=== PATIENT | female | born 1945 | race Caucasian/White ===

== ENCOUNTER 2016-04-11 23:49 | Emergency (ER) | payer MEDICARE ==
--- NOTE | 2016-04-12 00:11 | ED ---
Fall HPI - General Chief Complaint: Fall Stated Complaint: Fall-Head Lac Time Seen by Provider: 04/12/16 00:02 Source: patient, family Mode of arrival: ambulatory - History of Present Illness Initial Comments: Patient is 70-year-old female with chief complaint of a fall and a head laceration approximately 2 hours ago. Patient reports that she is under the influence of alcohol and fell back and hit her head. She does not know what she hit her head on. Patient reports that she's been under stress lately as her daughter is in halfway. patient reports that this causes her to drink. she reports she's only had 3 beers. patient is currently slurring her words. patient does have significant blood going down the left side of her scalp. patient reports no dizziness or loss of consciousness. - Related Data Home Medications Medication Instructions Recorded Confirmed ALPRAZolam [Xanax] 0.25 mg PO Q8HR 04/11/16 04/12/16 risperiDONE [RisperDAL] 15 mg PO DAILY PRN 04/11/16 04/12/16 Allergies Allergy/AdvReac Type Severity Reaction Status Date / Time No Known Allergies Allergy Verified 04/11/16 23:58 Review of Systems ROS Statement: Those systems with pertinent positive or pertinent negative responses have been documented in the HPI. ROS Other: All systems not noted in ROS Statement are negative. Past Medical History Past Medical History: Sleep Apnea/CPAP/BIPAP Additional Past Medical History / Comment(s): sleep disorder, anxiety History of Any Multi-Drug Resistant Organisms: None Reported Past Surgical History: No Surgical Hx Reported Past Psychological History: Anxiety Smoking Status: Never smoker Past Alcohol Use History: None Reported Past Drug Use History: None Reported General Exam Limitations: no limitations General appearance: alert, in no apparent distress Head exam: Present: normocephalic, normal inspection. Absent: atraumatic ( Patient has a significant amount of bloodfrom a 5 cm gash over the left side of the scalp.) Eye exam: Present: normal appearance, PERRL, EOMI. Absent: scleral icterus, conjunctival injection, periorbital swelling ENT exam: Present: normal exam, normal oropharynx, mucous membranes moist, TM's normal bilaterally, normal external ear exam Neck exam: Present: normal inspection, full ROM. Absent: tenderness, meningismus, lymphadenopathy Respiratory exam: Present: normal lung sounds bilaterally. Absent: respiratory distress, wheezes, rales, rhonchi, stridor, chest wall tenderness, accessory muscle use, decreased breath sounds, prolonged expiratory Cardiovascular Exam: Present: regular rate, normal rhythm, normal heart sounds. Absent: bradycardia, tachycardia, irregular rhythm, systolic murmur, diastolic murmur, rubs, gallop, clicks GI/Abdominal exam: Present: soft, normal bowel sounds. Absent: distended, tenderness, guarding, rebound, rigid Extremities exam: Present: normal inspection, full ROM, normal capillary refill. Absent: tenderness, pedal edema, joint swelling, calf tenderness Back exam: Present: normal inspection Neurological exam: Present: alert, oriented X3, CN II-XII intact, normal gait Psychiatric exam: Present: normal affect, normal mood Skin exam: Present: warm, dry, intact, normal color. Absent: rash Course Vital Signs 04/11/16 04/12/16 04/12/16 23:53 00:51 02:23 Temperature 97.4 F L 97.8 F Pulse Rate 87 90 79 Respiratory 20 20 18 Rate Blood Pressure 202/102 167/90 159/80 O2 Sat by Pulse 95 98 98 Oximetry Procedures - Laceration Laceration #1 Site: scalp (5 cm laceration) Size (cm): 5 Description: linear Depth: simple, single layer Anesthetic Used: benzocaine 0.25% Anesthesia Technique: local infiltration Amount (mls): 3 Pre-repair: wound explored, irrigated extensively Type of Sutures: other (daryn ) Number of Sutures: 7 Technique: simple, interrupted Patient Tolerated Procedure: well, no complications Medical Decision Making - Medical Decision Making Patient is a 70-year-old intoxicated female with chief complaint of a fall and head injury with a laceration over the posterior scalp. Patient has a significant amount of blood in her hair. Patient's laceration measures approximately [address] brain and C-spine were negative for any acute process. Patient able to ambulate and is not dizzy at this time. Patient reports that when she fell she was drunk and tripped and hit the edge of her head in the bathroom. She states she's been on there is significant amount of stress and is was causing her to drink. Patient was given 7 daryn after her hair was washed and free of blood clots. Patient was instructed on return parameters and to monitor for any signs of infection. She reports that she does not want to receive a tetanus vaccination. She states that she will be monitored by family member for the next 24 hours. Patient was advised to follow-up with primary care provider. She will return in approximately 7-10 days to have daryn removed. - Radiology Data Radiology results: report reviewed CT brain and C-spine were negative for any acute process. There is evidence of a laceration and hematoma over the left posterior scalp.No evidence of skull fracture. No acute intracranial hemorrhage, mass effect or midline shifts seen. No definite acute fracture in the cervical spine. Degenerative changes in the lower cervical spine. Disposition Clinical Impression: Scalp laceration, Head injury Disposition: HOME SELF-CARE Condition: Good Instructions: Fall Prevention for Older Adults (ED), Staple Care (ED), Head Injury (ED) Additional Instructions: Please return to the emergency room in 8-10 days to have staple removed. Please leave wound covered for the first 24-48 hours and then leave open to air after that time. Please use clean soap and water to clean the suture area to prevent scabbing over the top of your sutures. Please watch for any signs of infection which may include but not limited to increased pain, swelling, redness, fever or chills. Please return to the emergency room if any signs of infection do occur. Please return to the emergency room for any other concerns or complications. Referrals: Ness Ramos MD [Primary Care Provider] - 1-2 days Time of Disposition: 02:03
--- NOTE | 2016-04-12 01:10 | CT ---
EXAMINATION TYPE: CT brain damienine wo con DATE OF EXAM: 04/12/2016 12:43 AM COMPARISON: CT brain 11/24/2011 HISTORY: ETOH, fall, head lacerations, no LOC CT DLP: 1523.00 mGycm Automated exposure control for dose reduction was used. TECHNIQUE: CT scan of the head and cervical spine are performed without contrast. FINDINGS: CT brain: There is evidence of scalp laceration in the left posterior parietal area. No significant cephalohema cosme or depressed skull fracture is noted. There is no acute intracranial hemorrhage, mass effect, or midline shift identified. The ventricles and sulci are within normal limits in size. The globes are intact and the visualized sinuses are deysi ar. Vascular calcifications are noted in the base of the brain. Cervical spine: Cervical spine is visualized in its entirety from C1 through upper thoracic levels and demonstrates s atisfactory alignment without evidence of acute fracture or dislocation. Prevertebral soft tissue ap pears within normal limits. The C1-C2 articulation is unremarkable. There is reversal of normal cervical lordosis. Degenerative disc disease changes are suggested at the levels of C5-C6 and C6-C7 with disc osteophyte complexes without significant canal or foramina narro wing. IMPRESSION: 1. Scalp laceration is suggested in the left posterior parietal area without depressed skull fracture . 2. No acute intracranial hemorrhage, mass effect, or midline shift is seen. No significant change in the brain since previous study 11/24/2011. 3. No definite acute fracture in the cervical spine. 4. Degenerative changes in the lower cervical spine.
[2016-04-12 02:25] VITALS: BP 159/80; PULSE 79; RESP 18; TEMP 97.8
== END 2016-04-12 02:25 | disposition home or self-care (01) ==
LOC: EC 23:49
DX: S01.01XA Laceration without foreign body of scalp, initial encounter (principal); S09.90XA Unspecified injury of head, initial encounter; F10.129 Alcohol abuse with intoxication, unspecified; W01.10XA Fall on same level from slipping, tripping and stumbling with subsequent striking against unspecified object, initial encounter; F41.9 Anxiety disorder, unspecified; G47.30 Sleep apnea, unspecified; Z79.899 Other long term (current) drug therapy; Z99.89 Dependence on other enabling machines and devices
CPT/HCPCS: 12002; 70450; 72125; 99284

== ENCOUNTER 2019-11-16 16:24 | Emergency (ER) | payer MEDICARE, OTHER ==
[2019-11-16 16:30] VITALS: TEMP 98.1
[2019-11-16] MEDS ORDERED: SODIUM CHLORIDE 0.9% 1,000 ML IV STA (16:44)
--- NOTE | 2019-11-16 16:51 | ED ---
Arrhythmia/Palpitations HPI - General Chief Complaint: Recheck/Abnormal Lab/Rx Stated Complaint: sent by PCP Time Seen by Provider: 11/16/19 16:34 Source: patient, RN notes reviewed, old records reviewed Mode of arrival: ambulatory Limitations: no limitations - History of Present Illness Initial Comments: This is a 71-year-old female DF for evaluation of her complaining of elevated blood pressure. Patient was sent by primary care for evaluation in regards to probable possibly abnormal EKG, multiple nonspecific findings. Patient suffers no complaints here in the ER patient having significant difficulty managing her blood pressure MD Complaint: rapid heart beat, palpitations -: days(s) Context: occurred during rest, occurred during exertion Associated Symptoms: chest pain - Related Data Home Medications Medication Instructions Recorded Confirmed Aspirin EC [Ecotrin Low Dose] 81 mg PO DAILY 11/16/19 11/16/19 Losartan Potassium [Cozaar] 25 mg PO DAILY 11/16/19 11/16/19 Melatonin 10 mg PO HS PRN 11/16/19 11/16/19 Multivitamins, Thera [Multivitamin 1 tab PO DAILY 11/16/19 11/16/19 (formulary)] Previous Rx's Medication Instructions Recorded Metoprolol Tartrate [Lopressor] 50 mg PO BID #60 tab 11/16/19 Allergies Allergy/AdvReac Type Severity Reaction Status Date / Time tobramycin AdvReac Swelling Verified 11/16/19 17:41 Review of Systems ROS Statement: Those systems with pertinent positive or pertinent negative responses have been documented in the HPI. ROS Other: All systems not noted in ROS Statement are negative. Past Medical History Past Medical History: Hypertension Additional Past Medical History / Comment(s): anxiety History of Any Multi-Drug Resistant Organisms: None Reported Past Surgical History: No Surgical Hx Reported Past Psychological History: Anxiety Smoking Status: Never smoker Past Alcohol Use History: None Reported Past Drug Use History: None Reported General Exam Limitations: no limitations General appearance: alert, in no apparent distress, anxious Head exam: Present: atraumatic, normocephalic, normal inspection Eye exam: Present: normal appearance, PERRL, EOMI. Absent: scleral icterus, conjunctival injection, periorbital swelling ENT exam: Present: normal exam, mucous membranes moist Neck exam: Present: normal inspection. Absent: tenderness, meningismus, lymphadenopathy Respiratory exam: Present: normal lung sounds bilaterally. Absent: respiratory distress, wheezes, rales, rhonchi, stridor Cardiovascular Exam: Present: normal rhythm, tachycardia, normal heart sounds. Absent: systolic murmur, diastolic murmur, rubs, gallop, clicks GI/Abdominal exam: Present: soft, normal bowel sounds. Absent: distended, tenderness, guarding, rebound, rigid Extremities exam: Present: normal inspection, full ROM, normal capillary refill. Absent: tenderness, pedal edema, joint swelling, calf tenderness Back exam: Present: normal inspection Neurological exam: Present: alert, oriented X3, CN II-XII intact Psychiatric exam: Present: normal affect, normal mood Skin exam: Present: warm, dry, intact, normal color. Absent: rash Course Vital Signs 11/16/19 11/16/19 11/16/19 16:25 17:19 17:51 Temperature 98.1 F Pulse Rate 109 H Respiratory 18 Rate Blood Pressure 185/102 186/91 174/66 O2 Sat by Pulse 100 Oximetry 11/16/19 11/16/19 18:49 18:50 Temperature 98.1 F Pulse Rate 88 88 Respiratory 16 16 Rate Blood Pressure 161/85 161/85 O2 Sat by Pulse 100 Oximetry - Reevaluation(s) Reevaluation #1: Medical record is reviewed Patient reevaluated, symptoms are significantly improved Patient informed of results and questions are answered EKG Findings - EKG Comments: EKG Findings:: EKG shows sinus tachycardia rate of 108. AL 184 QRS 80 QTC 457 Medical Decision Making - Medical Decision Making 74 female DF for evaluation, patient does not feel well. Patient has had unm anageable blood pressure at home blood pressures currently improved here in the ER, patient's a symptomatic otherwise would prefer discharged home - Lab Data Result diagrams: 11/16/19 16:54 11/16/19 16:54 Lab Results 11/16/19 11/16/19 11/16/19 Range/Units 16:54 16:54 16:54 WBC 9.0 (3.8-10.6) k/uL RBC 4.78 (3.80-5.40) m/uL Hgb 14.5 (11.4-16.0) gm/dL Hct 44.2 (34.0-46.0) % MCV 92.4 (80.0-100.0) fL MCH 30.3 (25.0-35.0) pg MCHC 32.8 (31.0-37.0) g/dL RDW 11.9 (11.5-15.5) % Plt Count 310 (150-450) k/uL Neutrophils % 72 % Lymphocytes % 19 % Monocytes % 5 % Eosinophils % 2 % Basophils % 1 % Neutrophils # 6.4 (1.3-7.7) k/uL Lymphocytes # 1.7 (1.0-4.8) k/uL Monocytes # 0.5 (0-1.0) k/uL Eosinophils # 0.1 (0-0.7) k/uL Basophils # 0.1 (0-0.2) k/uL PT 10.4 (9.0-12.0) sec INR 1.0 (<1.2) APTT 25.6 (22.0-30.0) sec Sodium 139 (137-145) mmol/L Potassium 3.6 (3.5-5.1) mmol/L Chloride 103 (98-107) mmol/L Carbon Dioxide 25 (22-30) mmol/L Anion Gap 11 mmol/L BUN 14 (7-17) mg/dL Creatinine 0.89 (0.52-1.04) mg/dL Est GFR (CKD-EPI)AfAm 74 (>60 ml/min/1.73 sqM) Est GFR (CKD-EPI)NonAf 65 (>60 ml/min/1.73 sqM) Glucose 139 H (74-99) mg/dL Plasma Lactic Acid [place] (0.7-2.0) mmol/L Calcium 9.5 (8.4-10.2) mg/dL Phosphorus 3.1 (2.5-4.5) mg/dL Magnesium 2.4 H (1.6-2.3) mg/dL Total Bilirubin 0.4 (0.2-1.3) mg/dL AST 39 H (14-36) U/L ALT 28 (4-34) U/L Alkaline Phosphatase 107 (38-126) U/L Creatine Kinase 42 (30-135) U/L Troponin I (0.000-0.034) ng/mL NT-Pro-B Natriuret Pep pg/mL Total Protein 8.3 H (6.3-8.2) g/dL Albumin 4.8 (3.5-5.0) g/dL TSH 1.950 (0.465-4.680) mIU/L Urine Color Urine Appearance (Clear) Urine pH (5.0-8.0) Ur Specific [place] (1.001-1.035) Urine Protein (Negative) Urine Glucose (UA) (Negative) Urine Ketones (Negative) Urine Blood (Negative) Urine Nitrite (Negative) Urine Bilirubin (Negative) Urine Urobilinogen (<2.0) mg/dL Ur Leukocyte Esterase (Negative) Urine RBC (0-5) /hpf Urine WBC (0-5) /hpf Ur Squamous Epith Cells (0-4) /hpf Urine Mucus (None) /hpf 11/16/19 11/16/19 11/16/19 Range/Units 16:54 16:54 16:54 WBC (3.8-10.6) k/uL RBC (3.80-5.40) m/uL Hgb (11.4-16.0) gm/dL Hct (34.0-46.0) % MCV (80.0-100.0) fL MCH (25.0-35.0) pg MCHC (31.0-37.0) g/dL RDW (11.5-15.5) % Plt Count (150-450) k/uL Neutrophils % % Lymphocytes % % Monocytes % % Eosinophils % % Basophils % % Neutrophils # (1.3-7.7) k/uL Lymphocytes # (1.0-4.8) k/uL Monocytes # (0-1.0) k/uL Eosinophils # (0-0.7) k/uL Basophils # (0-0.2) k/uL PT (9.0-12.0) sec INR (<1.2) APTT (22.0-30.0) sec Sodium (137-145) mmol/L Potassium (3.5-5.1) mmol/L Chloride (98-107) mmol/L Carbon Dioxide (22-30) mmol/L Anion Gap mmol/L BUN (7-17) mg/dL Creatinine (0.52-1.04) mg/dL Est GFR (CKD-EPI)AfAm (>60 ml/min/1.73 sqM) Est GFR (CKD-EPI)NonAf (>60 ml/min/1.73 sqM) Glucose (74-99) mg/dL Plasma Lactic Acid [place] 1.2 (0.7-2.0) mmol/L Calcium (8.4-10.2) mg/dL Phosphorus (2.5-4.5) mg/dL Magnesium (1.6-2.3) mg/dL Total Bilirubin (0.2-1.3) mg/dL AST (14-36) U/L ALT (4-34) U/L Alkaline Phosphatase (38-126) U/L Creatine Kinase (30-135) U/L Troponin I <0.012 (0.000-0.034) ng/mL NT-Pro-B Natriuret Pep 331 pg/mL Total Protein (6.3-8.2) g/dL Albumin (3.5-5.0) g/dL TSH (0.465-4.680) mIU/L Urine Color Urine Appearance (Clear) Urine pH (5.0-8.0) Ur Specific [place] (1.001-1.035) Urine Protein (Negative) Urine Glucose (UA) (Negative) Urine Ketones (Negative) Urine Blood (Negative) Urine Nitrite (Negative) Urine Bilirubin (Negative) Urine Urobilinogen (<2.0) mg/dL Ur Leukocyte Esterase (Negative) Urine RBC (0-5) /hpf Urine WBC (0-5) /hpf Ur Squamous Epith Cells (0-4) /hpf Urine Mucus (None) /hpf 11/16/19 Range/Units 17:21 WBC (3.8-10.6) k/uL RBC (3.80-5.40) m/uL Hgb (11.4-16.0) gm/dL Hct (34.0-46.0) % MCV (80.0-100.0) fL MCH (25.0-35.0) pg MCHC (31.0-37.0) g/dL RDW (11.5-15.5) % Plt Count (150-450) k/uL Neutrophils % % Lymphocytes % % Monocytes % % Eosinophils % % Basophils % % Neutrophils # (1.3-7.7) k/uL Lymphocytes # (1.0-4.8) k/uL Monocytes # (0-1.0) k/uL Eosinophils # (0-0.7) k/uL Basophils # (0-0.2) k/uL PT (9.0-12.0) sec INR (<1.2) APTT (22.0-30.0) sec Sodium (137-145) mmol/L Potassium (3.5-5.1) mmol/L Chloride (98-107) mmol/L Carbon Dioxide (22-30) mmol/L Anion Gap mmol/L BUN (7-17) mg/dL Creatinine (0.52-1.04) mg/dL Est GFR (CKD-EPI)AfAm (>60 ml/min/1.73 sqM) Est GFR (CKD-EPI)NonAf (>60 ml/min/1.73 sqM) Glucose (74-99) mg/dL Plasma Lactic Acid [place] (0.7-2.0) mmol/L Calcium (8.4-10.2) mg/dL Phosphorus (2.5-4.5) mg/dL Magnesium (1.6-2.3) mg/dL Total Bilirubin (0.2-1.3) mg/dL AST (14-36) U/L ALT (4-34) U/L Alkaline Phosphatase (38-126) U/L Creatine Kinase (30-135) U/L Troponin I (0.000-0.034) ng/mL NT-Pro-B Natriuret Pep pg/mL Total Protein (6.3-8.2) g/dL Albumin (3.5-5.0) g/dL TSH (0.465-4.680) mIU/L Urine Color Colorless Urine Appearance Clear (Clear) Urine pH 7.0 (5.0-8.0) Ur Specific [place] 1.005 (1.001-1.035) Urine Protein Negative (Negative) Urine Glucose (UA) Negative (Negative) Urine Ketones Negative (Negative) Urine Blood Trace H (Negative) Urine Nitrite Negative (Negative) Urine Bilirubin Negative (Negative) Urine Urobilinogen <2.0 (<2.0) mg/dL Ur Leukocyte Esterase Negative (Negative) Urine RBC 1 (0-5) /hpf Urine WBC 2 (0-5) /hpf Ur Squamous Epith Cells <1 (0-4) /hpf Urine Mucus Rare H (None) /hpf - Radiology Data Radiology results: report reviewed (Chest x-rays negative for acute disease), image reviewed Disposition Clinical Impression: Hypertension Disposition: HOME SELF-CARE Condition: Good Instructions (If sedation given, give patient instructions): Hypertension (ED) Prescriptions: Metoprolol Tartrate [Lopressor] 50 mg PO BID #60 tab Is patient prescribed a controlled substance at d/c from ED?: No Referrals: Babar Huff MD [Primary Care Provider] - 1-2 days
[2019-11-16 17:12] LABS: Basophils # (A) 0.1 k/uL (0-0.2); Basophils % (A) 1 %; Eosinophils # (A) 0.1 k/uL (0-0.7); Eosinophils % (A) 2 %; HCT 44.2 % (34.0-46.0); HGB 14.5 gm/dL (11.4-16.0); Lymphocytes # (A) 1.7 k/uL (1.0-4.8); Lymphocytes % (A) 19 %; MCH 30.3 pg (25.0-35.0); MCHC 32.8 g/dL (31.0-37.0); MCV 92.4 fL (80.0-100.0); Mean Platelet Volume 7.7; Monocytes # (A) 0.5 k/uL (0-1.0); Monocytes % (A) 5 %; Neutrophils # (A) 6.4 k/uL (1.3-7.7); Neutrophils % (A) 72 %; Platelet Count 310 k/uL (150-450); RBC 4.78 m/uL (3.80-5.40); RDW 11.9 % (11.5-15.5)
[2019-11-16 17:22] LABS: Albumin 4.8 g/dL (3.5-5.0); Calcium 9.5 mg/dL (8.4-10.2); Magnesium 2.4 mg/dL (1.6-2.3); Partial Thromboplastin Time 25.6 sec (22.0-30.0); Phosphorus 3.1 mg/dL (2.5-4.5); Potassium 3.6 mmol/L (3.5-5.1); Prothrombin Time 10.4 sec (9.0-12.0); Total Bilirubin 0.4 mg/dL (0.2-1.3); Total Protein 8.3 g/dL (6.3-8.2)
--- NOTE | 2019-11-16 17:30 | XR ---
EXAMINATION TYPE: XR chest 2V DATE OF EXAM: 11/16/2019 COMPARISON: NONE HISTORY: Weakness TECHNIQUE: FINDINGS: Heart is normal. Lungs are clear of infiltrate. There is no heart failure. Thoracic aorta i s atheromatous. There are chest leads. There is no pleural effusion. Bony thorax is intact. IMPRESSION: No active cardiopulmonary disease. Normal heart.
[2019-11-16 17:51] LABS: Appearance,Urine Clear (Clear); Bilirubin,Urine Negative (Negative); Blood,Urine Trace (Negative); Color,Urine Colorless; Glucose,Urine (UA) Negative (Negative); Ketones,Urine Negative (Negative); Leukocyte Esterase,Urine Negative (Negative); Mucus,Urine Rare /hpf; Nitrite,Urine Negative (Negative); Protein,Urine Negative (Negative); RBC,Urine 1 /hpf (0-5); Specific Gravity,Urine 1.005 (1.001-1.035); Squamous Epithelial Cell,Urine <1 /hpf (0-4); Urobilinogen,Urine <2.0 mg/dL (<2.0); WBC,Urine 2 /hpf (0-5)
[2019-11-16] MEDS ORDERED: LABETALOL 5 MG/ML VIAL MDV IVP STA (18:32)
[2019-11-16 18:50] VITALS: BP 161/85; PULSE 88; RESP 16
== END 2019-11-16 18:51 | disposition home or self-care (01) ==
LOC: EC 16:24
DX: I10 Essential (primary) hypertension (principal); R00.0 Tachycardia, unspecified; Z88.1 Allergy status to other antibiotic agents
CPT/HCPCS: 36415; 71046; 80053; 81001; 82550; 83605; 83735; 83880; 84100; 84443; 84484; 85025; 85610; 85730; 93005; 99284

== ENCOUNTER 2019-11-27 09:59 | Observation (INO) | payer MEDICARE, OTHER ==
[2019-11-27] MEDS ORDERED: NITROGLYCERIN SL TABS 0.4 MG TAB SUBLINGUAL PRN (11:37)
[2019-11-27] MEDS ORDERED: ALPRAZolam 0.5 MG TAB PO PRN (11:37)
--- NOTE | 2019-11-27 11:39 | P.STRESS ---
- Stress Test Note Stress Test Results/Findings: Exam Performed: stress echo exercise Exam Date: 11/27/19 Reason for Exam: TACHYCARDIA Height: 5 ft 2 in Weight: 148 kg Protocol: OSEAS Stage: 2 Duration of Exercise: 10:15 Resting Heart Rate: 76 Resting Blood Pressure: 176/76 Maximum Achieved Heart Rate: 138 Maximum Achieved Blood Pressure: 211/111 85% PMHR: 125 100% PMHR: 147 METS: Technologist Comment: Stress Test Results/Findings: Exercise stress echo report History of hypertension history of tachycardia Baseline 176 beats a minute, Baseline blood pressure 176/76 mmHg Patient exercised on a Oseas protocol for 4 minutes 15 seconds, achieving a peak 100 138 beats a minute. She had a hypertensive response to exercise. Peak blo od pressure 211/111 mmHg She remained asymptomatic Twelve-lead EKG showed inferolateral ST depression 1 mm, horizontal Outflow tract PVCs noted no nonsustained ventricular tachycardia The baseline 2-D echo images showed normal LV systolic function without segmental wall motion abnormalities. At peak exercise there was a mild global reduction in overall LV contractility but specifically the inferior wall and the anterior wall seemed more hypokinetic than at baseline: Recovery Impression Abnormal stress echo with a [address] depression and global reduction in LV systolic function at peak exercise suggestive of either multivessel coronary artery disease or uncontrolled hypertension Inferior wall and anterior wall hypokinesis at peak exercise
[2019-11-27] MEDS ORDERED: METOPROLOL TARTRATE 25 MG TAB PO SCH (11:45)
[2019-11-27 12:16] LABS: Basophils % (A) 0 %; Eosinophils # (A) 0.1 k/uL (0-0.7); Eosinophils % (A) 1 %; HCT 40.5 % (34.0-46.0); HGB 13.1 gm/dL (11.4-16.0); Lymphocytes # (A) 0.8 k/uL (1.0-4.8); Lymphocytes % (A) 13 %; MCH 30.1 pg (25.0-35.0); MCHC 32.3 g/dL (31.0-37.0); MCV 93.1 fL (80.0-100.0); Mean Platelet Volume 8.4; Monocytes # (A) 0.3 k/uL (0-1.0); Monocytes % (A) 4 %; Neutrophils # (A) 4.8 k/uL (1.3-7.7); Neutrophils % (A) 80 %; Platelet Count 231 k/uL (150-450); RBC 4.35 m/uL (3.80-5.40); RDW 12.2 % (11.5-15.5)
[2019-11-27 12:25] LABS: Calcium 9.1 mg/dL (8.4-10.2); Potassium 3.7 mmol/L (3.5-5.1)
[2019-11-27] MEDS: ASPIRIN 81 MG PO SCH (12:25)
[2019-11-27] MEDS: LOSARTAN 25 MG TAB PO SCH (12:25)
--- NOTE | 2019-11-27 15:16 | P.CRDCN ---
History of Present Illness History of present illness: HISTORY OF PRESENTING ILLNESS This is a pleasant 74-year-old female past medical history significant for hypertension. She does not follow in the office with a pest control specialist. She pr esented to the hospital today for a stress test because of uncontrolled hypertension and tachycardia noted in her PCP's office. During her stress test she did not have chest pain or shortness of breath, however she had inferior- lateral ST depression and global decrease in LV contractility. We advised admission to hospital for cardiac catheterization and blood pressure management. She states over the previous few months she has been trialed on 5 different medications for her blood pressure and she had different symptoms that made these medications intolerable. Currently she is on lopressor 50 mg BID. DIAGNOSTICS EKG reveals sinus mechanism with no acute changes at rest. Current cardiac medications include lopressor 50 mg BID. REVIEW OF SYSTEMS At the time of my exam: CONSTITUTIONAL: Denies fever or chills. CARDIOVASCULAR: Denies chest pain, shortness of breath, orthopnea, PND or palpi tations. RESPIRATORY: Denies cough. GASTROINTESTINAL: Denies abdominal pain, diarrhea, constipation, nausea or vomiting. MUSCULOSKELETAL: Denies myalgias. NEUROLOGIC: Denies numbness, tingling or weakness. ENDOCRINE: Denies fatigue, weight change, polydipsia or polyurina. GENITOURINARY: Denies burning, hematuria or urgency with micturation. HEMATOLOGIC: Denies history of anemia or bleeding. PHYSICAL EXAMINATION Blood pressure 124/67 heart rate 68 afebrile and maintaining oxygen saturation on room air. CONSTITUTIONAL: No apparent distress. HEENT: Head is normocephalic. Pupils are equal, round. Sclerae anicteric. Mucous membranes of the mouth are moist. No JVD. No carotid bruit. CHEST EXAMINATION: Lungs are clear to auscultation. No chest wall tenderness is noted on palpation or with deep breathing. HEART EXAMINATION: Regular rate and rhythm. S1, S2 heard. No murmurs, gallops or rub. ABDOMEN: Soft, nontender. Positive bowel sounds. EXTREMITIES: 2+ peripheral pulses, no lower extremity edema and no calf tenderness. NEUROLOGIC EXAMINATION: Patient is awake, alert and oriented x3. ASSESSMENT Hypertension, uncontrolled Abnormal stress echocardiogram with ST segment depression and impaired LV contractility. PLAN Initiate losartan 12.5 mg daily. Plan for cardiac catheterization tomorrow with Dr. Garcia. The procedure has been explained to the patient in great detail, she is agreeable to move forward tomorrow. Thank you kindly for this consultation. Nurse Practitioner note has been reviewed, I agree with a documented findings and plan of care. Patient was seen and examined. Past Medical History Past Medical History: Hypertension Additional Past Medical History / Comment(s): anxiety History of Any Multi-Drug Resistant Organisms: None Reported Past Surgical History: No Surgical Hx Reported Past Psychological History: Anxiety Smoking Status: Never smoker Past Alcohol Use History: None Reported Past Drug Use History: None Reported Medications and Allergies Home Medications Medication Instructions Recorded Confirmed Type Aspirin EC [Ecotrin Low Dose] 81 mg PO DAILY 11/16/19 11/27/19 History Melatonin 10 mg PO HS PRN 11/16/19 11/27/19 History Metoprolol Tartrate [Lopressor] 50 mg PO BID #60 tab 11/16/19 11/27/19 Rx Multivitamins, Thera [Multivitamin 1 tab PO DAILY 11/16/19 11/27/19 History (formulary)] Azelastine HCl [Optivar 0.05% 1 drop BOTH EYES BID 11/27/19 11/27/19 History Yuli Francois] Allergies Allergy/AdvReac Type Severity Reaction Status Date / Time tobramycin Allergy Swelling Verified 11/27/19 11:48 Physical Exam Vitals: Vital Signs Temp Pulse Resp BP Pulse Ox 11/27/19 11:50 97.9 F 68 16 124/67 99 Intake and Output 11/26/19 11/27/19 11/27/19 22:59 06:59 14:59 Other: Weight 148 kg Results 11/27/19 11:53 11/27/19 11:53 Lipids 11/27/19 Range/Units 11:53 Triglycerides 78 (<150) mg/dL Cholesterol 189 (<200) mg/dL HDL Cholesterol 64 H (40-60) mg/dL CBC 11/27/19 Range/Units 11:53 WBC 6.0 (3.8-10.6) k/uL RBC 4.35 (3.80-5.40) m/uL Hgb 13.1 (11.4-16.0) gm/dL Hct 40.5 (34.0-46.0) % Plt Count 231 (150-450) k/uL Comprehensive Metabolic Panel 11/27/19 Range/Units 11:53 Sodium 139 (137-145) mmol/L Potassium 3.7 (3.5-5.1) mmol/L Chloride 106 (98-107) mmol/L Carbon Dioxide 27 (22-30) mmol/L BUN 11 (7-17) mg/dL Creatinine 0.81 (0.52-1.04) mg/dL Glucose 121 H (74-99) mg/dL Calcium 9.1 (8.4-10.2) mg/dL Current Medications Generic Name Dose Route Start Last Admin Trade Name Freq PRN Reason Stop Dose Admin Alprazolam 0.25 mg 11/27/19 11:37 Alprazolam 0.25 Mg Tab PO Q6HR PRN Mild Anxiety Alprazolam 0.5 mg 11/27/19 11:37 Alprazolam 0.5 Mg Tab PO Q6HR PRN Moderate Anxiety Aspirin 81 mg 11/27/19 11:45 11/27/19 12:25 Aspirin 81 Mg PO 81 mg DAILY VERNELL Administration Aspirin 325 mg 11/28/19 09:00 Aspirin 325 Mg Tab PO 11/28/19 09:01 ONCE ONE Atorvastatin Calcium 80 mg 11/28/19 09:00 Atorvastatin 80 Mg Tab PO 11/28/19 09:01 ONCE ONE Sodium Chloride 1,000 ml/ IV 1,000 mls @ 148 mls/hr 11/27/19 11:37 Solution IV 11/27/19 18:22 .[id number] ONE 1 ML/KG/HR Losartan Potassium 12.5 mg 11/27/19 11:45 11/27/19 12:25 Losartan 25 Mg Tab PO 12.5 mg DAILY VERNELL Administration Metoprolol Tartrate 25 mg 11/27/19 11:45 11/27/19 12:25 Metoprolol Tartrate 25 Mg Tab PO 25 mg BID VERNELL Administration Nitroglycerin 0.4 mg 11/27/19 11:37 Nitroglycerin Sl Tabs 0.4 Mg Tab SUBLINGUAL Q5M PRN Chest Pain Intake and Output 11/26/19 11/27/19 11/27/19 22:59 06:59 14:59 Other: Weight 148 kg Patient Weight 11/28/19 06:59 Weight 148 kg 11/27/19 11:53 11/27/19 11:53
[2019-11-27] MEDS: SODIUM CHLORIDE 0.9% 1,000 ML in EMPTY BAG 1 BAG IV ONE (16:32)
--- NOTE | 2019-11-27 18:52 | ECHOF ---
Referral Reason:R00.0 Tachycardia MEASUREMENTS -------- HEIGHT: 157.5 cm WEIGHT: 68.0 kg BP: IVSd: 0.9 cm (0.6 - 1.1) LVIDd: 3.9 cm (3.9 - 5.3) LVPWd: 1.1 cm (0.6 - 1.1) IVSs: 1.2 cm LVIDs: 3.1 cm LVPWs: 1.8 cm LA Diam: 3.5 cm (2.7 - 3.8) RVIDd: 2.8 cm (< 3.3) LAESV Index (A-L): 19.26 ml/m EPSS: 0.3 cm MV E Fady: 0.78 m/s MV DecT: 109 ms MV A Fady: 0.64 m/s MV E/A Ratio: 1.22 RAP: 5.00 mmHg RVSP: 34.93 mmHg MV EF SLOPE: 48.99 mm/s (70 - 150) MV EXCURSION: 8.81 mm (> 18.000) FINDINGS -------- Sinus rhythm. This was a technically good study. The left ventricular size is normal. There is mild concentric left ventricular hypertrophy. Overa ll left ventricular systolic function is low-normal with, an EF between 50 - 55 %. The right ventricle is normal in size. The right atrial size is normal. The aortic valve is trileaflet, and appears structurally normal. No aortic stenosis or regurgitation. Qzzh-zb-aspopokh mitral regurgitation is present. Mild tricuspid regurgitation present. There is mild pulmonary hypertension. There is no pulmonic regurgitation present. The aortic root size is normal. There is no pericardial effusion. CONCLUSIONS -------- 1. The left ventricular size is normal. 2. There is mild concentric left ventricular hypertrophy. 3. Overall left ventricular systolic function is low-normal with, an EF between 50 - 55 %. 4. The right ventricle is normal in size. 5. The right atrial size is normal. 6. Nrih-wx-skamjnys mitral regurgitation is present. 7. Mild tricuspid regurgitation present. 8. There is mild pulmonary hypertension. 9. There is no pulmonic regurgitation present. 10. There is no pericardial effusion. [employer]ER: Dee Mckeon RDCS
[2019-11-27] MEDS: METOPROLOL TARTRATE 50 MG TAB PO SCH (21:09)
--- NOTE | 2019-11-27 21:41 | P.HPIM ---
History of Present Illness H&P Date: 11/27/19 Chief Complaint: Abnormal Stress echo Patient is a 74-year-old female with a known history of hypertension which has been uncontrolled recently. Patient was sent to ER by her primary care physician on 11/16/2019 due to abnormal EKG and uncontrolled blood pressure. Patient is currently metoprolol 50 mg twice daily at home. Patient was initially presents to the hospital today for stress test due to uncontrolled hypertension and tachycardia noted in her PCPs office. Patient had stress test today which showed inferolateral ST depression 1 mm and also peak exercise with global reduction in the overall LV contractility specifically in the inferior wall and the anterior wall seemed more hypokinetic than at baseline. Patient was called back to the hospital for possible cardiac catheterization and blood pressure management. Patient otherwise denied any complaints of chest pain or shortness of air. No complaints of nausea vomiting or headache. Patient denies any smoking history or family history of coronary artery disease. Patient was previously on losartan 25 mg daily and was recently changed to Lopressor 50 mg twice daily. Laboratory data reviewed with LDL 119 and HDL 64 TSH 2.9 remaining lab data within normal limits. Recent chest x-ray showed no acute cardiopulmonary process Review of Systems Constitutional: Patient denies any fever or chills . No generalized weakness or weight loss. Abdomen: Patient denied nausea vomiting and diarrhea and abdominal pain. Cardiovascular: Patient denies any chest pain or short of breath no palpitations. Respiratory: patient denied any cough is from production. No shortness of breath Neurologic: Patient denied any numbness or tingling headache. Musculoskeletal: Patient denies any complaints of joint swelling or deformity. Skin: Negative Psychiatric: Negative Endocrine: No heat or cold intolerance. No recent weight gain. Genitourinary: No dysuria or hematuria. All other 14 point ROS negative except the above Past Medical History Past Medical History: Hypertension Additional Past Medical History / Comment(s): anxiety History of Any Multi-Drug Resistant Organisms: None Reported Past Surgical History: No Surgical Hx Reported Past Psychological History: Anxiety Smoking Status: Never smoker Past Alcohol Use History: None Reported Past Drug Use History: None Reported Medications and Allergies Home Medications Medication Instructions Recorded Confirmed Type Aspirin EC [Ecotrin Low Dose] 81 mg PO DAILY 11/16/19 11/27/19 History Melatonin 10 mg PO HS PRN 11/16/19 11/27/19 History Metoprolol Tartrate [Lopressor] 50 mg PO BID #60 tab 11/16/19 11/27/19 Rx Multivitamins, Thera [Multivitamin 1 tab PO DAILY 11/16/19 11/27/19 History (formulary)] Azelastine HCl [Optivar 0.05% 1 drop BOTH EYES BID 11/27/19 11/27/19 History Ophth Soln] Allergies Allergy/AdvReac Type Severity Reaction Status Date / Time tobramycin Allergy Swelling Verified 11/27/19 11:48 Physical Exam Vitals: Vital Signs Temp Pulse Resp BP Pulse Ox 11/27/19 11:50 97.9 F 68 16 124/67 99 Intake and Output 11/26/19 11/27/19 11/27/19 22:59 06:59 14:59 Other: Weight 148 kg PHYSICAL EXAMINATION: Patient is lying in the bed comfortably, no acute distress, awake alert and oriented.. HEENT: Normocephalic. Neck is supple. Pupils reactive. Nostrils clear. Oral cavity is moist. Ears reveal no drainage. Neck reveals no JVD, carotid bruits, or thyromegaly. CHEST EXAMINATION: Trachea is central. Symmetrical expansion. Lung river clear to auscultation and percussion. CARDIAC: Normal S1, S2 with no gallops. No murmurs ABDOMEN: Soft. Bowel sounds normal. No organomegaly. No abdominal bruits. Extremities: reveal no edema. No clubbing or cyanosis Neurologically awake, alert, oriented x3 with well-coordinated movements. No fo salo deficits noted Skin: No rash or skin lesions. Psychiatric: Coperative. Nonsuicidal Musculoskeletal: No joint swelling or deformity. Normal range of motion. Results CBC & Chem 7: 11/27/19 11:53 11/27/19 11:53 Labs: Abnormal Lab Results - Last 24 Hours (Table) 11/27/19 11/27/19 Range/Units 11:53 11:53 Lymphocytes # 0.8 L (1.0-4.8) k/uL Glucose 121 H (74-99) mg/dL LDL Cholesterol, Calc 109 H (0-99) mg/dL HDL Cholesterol 64 H (40-60) mg/dL Thrombosis Risk Factor Assmnt - DVT/VTE Prophylaxis DVT/VTE Prophylaxis: Low risk, early ambulation encouraged Assessment and Plan Assessment: Abnormal stress echocardiogram with anterolateral ST depression and peak exercise global reduction in the overall LV contractility in the inferior wall and anterior wall. Uncontrolled hypertension DVT prophylaxis with early ambulation Plan: Patient will be continued on telemetry monitoring. Continue with metoprolol 50 mg twice daily and losartan 12.5 mg daily was added. started on aspirin. Cardiology is planning for catheterization tomorrow.
[2019-11-28 05:49] LABS: Glucose,Whole Blood 98 mg/dL (75-99)
[2019-11-28] MEDS: LOSARTAN 25 MG TAB PO SCH (06:01)
[2019-11-28] MEDS: METOPROLOL TARTRATE 50 MG TAB PO SCH (06:01)
[2019-11-28] MEDS ORDERED: LOSARTAN 25 MG TAB PO ONE ×2 (08:15→14:45)
[2019-11-28] MEDS: SODIUM CHLORIDE 0.9% 1,000 ML in EMPTY BAG 1 BAG IV ONE (08:19)
--- NOTE | 2019-11-28 08:56 | ECHOS ---
Stress Test Results/Findings: Exam Performed: stress echo exercise Exam Date: 11/27/19 Reason for Exam: TACHYCARDIA Height: 5 ft 2 in Weight: 148 kg Protocol: OSEAS Stage: 2 Duration of Exercise: 10:15 Resting Heart Rate: 76 Resting Blood Pressure: 176/76 Maximum Achieved Heart Rate: 138 Maximum Achieved Blood Pressure: 211/111 85% PMHR: 125 100% PMHR: 147 METS: Technologist Comment: Stress Test Results/Findings: Exercise stress echo report History of hypertension history of tachycardia Baseline 176 beats a minute, Baseline blood pressure 176/76 mmHg Patient exercised on a Oseas protocol for 4 minutes 15 seconds, achieving a peak 100 138 beats a minute. She had a hypertensive response to exercise. Peak blood pressure 211/111 mmHg She remained asymptomatic Twelve-lead EKG showed inferolateral ST depression 1 mm, horizontal Outflow tract PVCs noted no nonsustained ventricular tachycardia The baseline 2-D echo images showed normal LV systolic function without segmental wall motion abnormalities. At peak exercise there was a mild global reduction in overall LV contractility but specifically the inferior wall and the anterior wall seemed more hypokinetic than at baseline: Recovery Impression Abnormal stress echo with a [address] depression and global reduction in LV systolic function at peak exercise suggestive of either multivessel coronary artery disease or uncontrolled hypertension Inferior wall and anterior wall hypokinesis at peak exercise MTDD
[2019-11-28] MEDS ORDERED: ASPIRIN 325 MG TAB PO ONE (09:00)
[2019-11-28] MEDS ORDERED: ATORVASTATIN 80 MG TAB PO ONE (09:00)
[2019-11-28] MEDS ORDERED: VERAPAMIL 2.5 MG/ML 2 ML AMP ONE (13:11)
[2019-11-28] MEDS ORDERED: LIDOCAINE 1% INJ 10MG/ML (20 ML MDV) ONE (13:11)
[2019-11-28] MEDS ORDERED: IV FLUID CONTINUATION 1,000 ML IV ONE (13:15)
[2019-11-28] MEDS ORDERED: fentaNYL (PF) 50 MCG/ML 2 ML AMP IV ONE (13:20)
[2019-11-28] MEDS ORDERED: MIDAZOLAM 2 MG/2 ML VIAL IV ONE (13:20)
[2019-11-28] MEDS ORDERED: fentaNYL (PF) 50 MCG/ML 2 ML AMP ONE (13:22)
[2019-11-28] MEDS ORDERED: LIDOCAINE 1% INJ 10MG/ML (20 ML MDV) SQ ONE (13:24)
[2019-11-28] MEDS ORDERED: hydrALAZINE HCL 20 MG/ML 1 ML VIAL ONE (13:29)
[2019-11-28] MEDS ORDERED: VERAPAMIL SYRINGE (5 MG/10 ML) INTRAARTER ONE (13:32)
[2019-11-28] MEDS ORDERED: hydrALAZINE HCL 20 MG/ML 1 ML VIAL IV ONE (13:32)
[2019-11-28] MEDS ORDERED: HEPARIN SODIUM 1,000 UN/ML (10ML VL) IV ONE (13:34)
[2019-11-28] MEDS ORDERED: IOPAMIDOL-370 100ML BTL INJ ONE (13:51)
[2019-11-28] MEDS ORDERED: RX INFO: IV CONTRAST WAS GIVEN 1 EACH MISC MISCELLANE PRN (13:55)
--- NOTE | 2019-11-28 14:06 | P.CARDCATH ---
Date of Procedure: 11/28/19 Description of Procedure: PROCEDURES PERFORMED: Left heart catheterization bilateral coronary angiography INDICATION: Abnormal stress test HISTORY: Patient is a 74-year-old female with history of hypertension who presents from primary care office secondary to uncontrolled hypertension and tachycardia. Patient has been completely asymptomatic and has fair exercise tolerance swimming and riding her bike routinely. She denies any chest pain, decrease in exercise tolerance, shortness of breath. She was seen by her primary care doctor with uncontrolled blood pressures and therefore sent by primary care physician for a stress test. Stress test showed concern of dilation and anterior lateral ischemia. Therefore heart catheterization was recommended. CONSENT:I have discussed the risks, benefits and alternative therapies for the above-mentioned procedure and for both sedation/analgesia as well as necessary blood product administration, if indicated, as they pertain to this patient. The patient has indicated understanding and acceptance of the risks and procedures discussed. PROCEDURE: After the risks, benefits and alternatives of the above mentioned procedure explained in detail with the patient, informed consent was obtained. Patient was taken to the catheterization lab and prepped and draped in usual fashion. 1% lidocaine was used to anesthetize the right radial artery. A 6- Brazilian sheath was placed in the right radial artery using modified Seldinger technique. Left coronary angiography was performed with a 5-Brazilian JL 3.5 catheter and right coronary angiography was performed with a 5-Brazilian JR5 catheter in various views. The JR5 catheter was advanced into the left ventric le and pressure meds were obtained. The right radial sheath was removed and a TR band was placed with hemostasis achieved. The patient tolerated the procedure well. Patient was transported back to the post catheterization holding area in stable condition. Conscious Sedation: Patient was monitored under the direct supervision of vision of myself for conscious sedation using 1 mg Versed and 25 mcg fentanyl for a total duration of 27 minutes HEMODYNAMICS: Aortic: 182/92 SELECTIVE CORONARY ARTERIOGRAPHY: LEFT MAIN: The left main is a large caliber vessel which bifurcates into the LAD and circumflex. There is no significant stenosis. LEFT ANTERIOR DESCENDING CORONARY ARTERY: LAD is a large caliber vessel which wraps around to the apex. There is tender 20% mid LAD stenosis. Diagonal 1 is a small caliber vessel approximately 2.0 mm in diameter with a 80% origin stenosis. Diagonal 2 is also a small caliber vessel which is tortuous and has a 90% origin stenosis. LEFT CIRCUMFLEX CORONARY ARTERY: Left circumflex is a moderate caliber vessel which is subtotally occluded proximally and has right to left collaterals. It supplies a small caliber OM1 vessel and then appears to terminate.. RIGHT CORONARY ARTERY: The right coronary artery is a large caliber vessel which gives off a PDA and PLV branch and is the dominant vessel. There is a proximal 40% RCA stenosis. There is a proximal PLV 60-70% stenosis. There are right to left collaterals to the OM and diagonal branches. LV: 160/3, LVEDP 9mmHg FINAL IMPRESSION: 1. Coronary artery disease as described above including 80% small caliber diagonal 1, 90% small caliber diagonal 2, subtotal occlusion circumflex and 60- 70% PLV stenosis. 2. Normal left-sided pressures PLAN: 1. Aggressive risk factor modification per most recent ACC/AHA guidelines. 2. Patient states she is totally asymptomatic and we would recommend medical therapy. Diagonal branches are small and somewhat tortuous with disease right at their origin to the LAD and intervention may be difficult. Circumflex is somewhat tortuous and has collaterals from the RCA. PLV is intermediate with 60-70% stenosis. If patient becomes symptomatic may consider intervention. Optimize anti-anginal medications.
[2019-11-28] MEDS: ASPIRIN 81 MG PO SCH (17:44)
[2019-11-28] MEDS: carvediloL 3.125 MG TAB PO SCH (17:45)
[2019-11-28] MEDS: ALPRAZolam 0.25 MG TAB PO PRN (20:08)
[2019-11-29 04:45] VITALS: RESP 16
[2019-11-29] MEDS: carvediloL 3.125 MG TAB PO SCH (06:50)
--- NOTE | 2019-11-29 07:47 | P.CRDCN ---
History of Present Illness History of present illness: 74-year-old female was referred for stress test by Dr. Babar Huff. She was found to be ischemic underwent stress echo with both inferior wall and anterolateral ischemia. Please see full dictation by nurse practitioner No significant stenosis in the left main coronary artery Wraparound LAD, 30% mid LAD stenosis First diagonal is a small caliber vessel of about 2 mm with an 80% stenosis at the ostium Second diagonal is a small caliber vessel, tortuous and is a 90% stenosis at the ostium This explains the anterolateral ischemia on stress echo Left circumflex is a moderate caliber vessel subtotally occluded and has [id number] collaterals. It supplies a small caliber OM1 vessel and then the patient terminate The LV is a 6070% stenosis 40% RCA stenosis Normal left-sided intracardiac pressures of 9 mmHg Elevated aortic pressures LDL 109, HDL 64, total close to 189 Normal renal function Suggest Maximize beta blockers for ischemia management, Coreg Maximize antihypertensive therapy, Coreg and losartan Maximally tolerated statins to reduce LDL well below 50 mg/dL Antiplatelet therapy Follow Dr. Dias within 1-2 weeks Past Medical History Past Medical History: Hypertension Additional Past Medical History / Comment(s): anxiety History of Any Multi-Drug Resistant Organisms: None Reported Past Surgical History: No Surgical Hx Reported Past Psychological History: Anxiety Smoking Status: Never smoker Past Alcohol Use History: None Reported Past Drug Use History: None Reported Medications and Allergies Home Medications Medication Instructions Recorded Confirmed Type Aspirin EC [Ecotrin Low Dose] 81 mg PO DAILY 11/16/19 11/27/19 History Melatonin 10 mg PO HS PRN 11/16/19 11/27/19 History Metoprolol Tartrate [Lopressor] 50 mg PO BID #60 tab 11/16/19 11/27/19 Rx Multivitamins, Thera [Multivitamin 1 tab PO DAILY 11/16/19 11/27/19 History (formulary)] Azelastine HCl [Optivar 0.05% 1 drop BOTH EYES BID 11/27/19 11/27/19 History Yuli Francois] Allergies Allergy/AdvReac Type Severity Reaction Status Date / Time tobramycin Allergy Swelling Verified 11/27/19 11:48 Physical Exam Vitals: Vital Signs Temp Pulse Resp BP BP Pulse Ox 11/29/19 03:00 98.0 F 78 16 144/72 97 11/29/19 01:41 97.9 F 78 18 142/72 96 11/28/19 21:00 98.0 F 75 18 155/78 97 11/28/19 17:39 91 16 129/80 100 11/28/19 16:40 89 16 137/87 99 11/28/19 15:40 76 16 135/87 99 11/28/19 15:10 98 F 72 16 133/72 98 11/28/19 14:48 72 16 11/28/19 14:47 98.1 F 72 16 162/84 98 11/28/19 14:40 72 16 162/84 98 11/28/19 14:10 71 16 176/78 98 11/28/19 13:55 98 F 68 16 155/81 99 11/28/19 09:00 97 16 11/28/19 08:16 98.1 F 97 16 196/82 98 Intake and Output 11/28/19 11/29/19 11/29/19 22:59 06:59 14:59 Intake Total 480 240 Balance 480 240 Intake: Oral 480 240 Other: Voiding Method Toilet Toilet # Voids 1 3 Results 11/27/19 11:53 11/27/19 11:53 Current Medications Generic Name Dose Route Start Last Admin Trade Name Freq PRN Reason Stop Dose Admin Alprazolam 0.25 mg 11/27/19 11:37 11/28/19 20:08 Alprazolam 0.25 Mg Tab PO 0.25 mg Q6HR PRN Administration Mild Anxiety Alprazolam 0.5 mg 11/27/19 11:37 Alprazolam 0.5 Mg Tab PO Q6HR PRN Moderate Anxiety Aspirin 81 mg 11/27/19 11:45 11/28/19 17:44 Aspirin 81 Mg PO Not Given DAILY VERNELL Atorvastatin Calcium 40 mg 11/29/19 09:00 Atorvastatin 40 Mg Tab PO DAILY VERNELL Carvedilol 6.25 mg 11/29/19 17:30 Carvedilol 3.125 Mg Tab PO BID-W/MEALS VERNELL Losartan Potassium 50 mg 11/29/19 12:00 Losartan 50 Mg Tab PO Q24H VERNELL Miscellaneous Information 1 each 11/28/19 13:55 Rx Info: Iv Contrast Was Given 1 Each Misc MISCELLANE 11/30/19 13:55 DAILY PRN Per Protocol Nitroglycerin 0.4 mg 11/27/19 11:37 Nitroglycerin Sl Tabs 0.4 Mg Tab SUBLINGUAL Q5M PRN Chest Pain Intake and Output 11/28/19 11/29/19 11/29/19 22:59 06:59 14:59 Intake Total 480 240 Balance 480 240 Intake: Oral 480 240 Other: Voiding Method Toilet Toilet # Voids 1 3 11/27/19 11:53 11/27/19 11:53
[2019-11-29] MEDS: ASPIRIN 81 MG PO SCH (08:39)
[2019-11-29] MEDS ORDERED: LOSARTAN 25 MG TAB PO SCH (09:00)
[2019-11-29] MEDS ORDERED: ATORVASTATIN 40 MG TAB PO SCH (09:00)
[2019-11-29] MEDS ORDERED: LOSARTAN 50 MG TAB PO SCH ×2 (09:00→12:00)
--- NOTE | 2019-11-29 10:37 | P.PN ---
Subjective HISTORY OF PRESENTING ILLNESS This is a pleasant 74-year-old female past medical history significant for hypertension. She does not follow in the office with a foreign correspondent. She underwent cardiac catheterization yesterday via the right radial artery with Dr. Garcia revealing 80% lesion in the small diagonal branch, 90% lesion of the second diagonal branch has subtotal occlusion of the ostial circumflex artery. She has been initiated on atorvastatin, aspirin, carvedilol and losartan. Blood pressure 175/72 heart rate 75 afebrile maintaining oxygen saturation on room air. She is seen and examined sitting up on the edge of the bed eating breakfast in no acute distress. She denies symptoms of chest pain, shortness of breath, dizziness or palpitations. Telemetry tracings have been unremarkable. Right radial artery access site is clean, dry and intact with strong pulses. She has no evidence of hematoma, bruising, bleeding or tenderness. PHYSICAL EXAMINATION CONSTITUTIONAL: No apparent distress. HEENT: Head is normocephalic. Pupils are equal, round. Sclerae anicteric. Mucous membranes of the mouth are moist. No JVD. No carotid bruit. CHEST EXAMINATION: Lungs are clear to auscultation. No chest wall tenderness is noted on palpation or with deep breathing. HEART EXAMINATION: Regular rate and rhythm. S1, S2 heard. No murmurs, gallops or rub. EXTREMITIES: 2+ peripheral pulses, no lower extremity edema and no calf tenderness. Right radial access site clean, dry and intact with strong distal pulses and no evidence of hematoma or bleeding. ASSESSMENT Hypertension, uncontrolled Abnormal stress echocardiogram with ST segment depression and impaired LV contractility. Coronary artery disease Dyslipidemia PLAN Increase carvedilol to 6.25 milligrams twice a day. Continue losartan 50 mg daily, atorvastatin 40 mg daily and aspirin 81 mg daily. Stable for discharge from a cardiac perspective. Follow-up in the office with Dr. Choi in one week. Nurse Practitioner note has been reviewed, I agree with a documented findings and plan of care. Patient was seen and examined. Objective - Vital Signs Vital signs: Vital Signs Temp 98 F 11/29/19 08:25 Pulse 75 11/29/19 08:25 Resp 16 11/29/19 09:00 BP 175/72 11/29/19 08:25 Pulse Ox 98 11/29/19 08:25 Intake & Output 11/28/19 11/29/19 11/29/19 18:59 06:59 18:59 Intake Total 100 720 100 Balance 100 720 100 Intake: IV 100 Oral 720 100 Other: Voiding Method Toilet Toilet Toilet # Voids 2 3 - Labs CBC & Chem 7: 11/27/19 11:53 11/27/19 11:53
--- NOTE | 2019-11-29 11:39 | P.PN ---
Subjective Progress Note Date: 11/28/19 Principal diagnosis: Abnormal stress test Patient is a 74-year-old female with a known history of hypertension which has been uncontrolled recently. Patient was sent to ER by her primary care physician on 11/16/2019 due to abnormal EKG and uncontrolled blood pressure. Patient is currently metoprolol 50 mg twice daily at home. Patient was initially presents to the hospital today for stress test due to uncontrolled hypertension and tachycardia noted in her PCPs office. Patient had stress test today which showed inferolateral ST depression 1 mm and also peak exercise with global reduction in the overall LV contractility specifically in the inferior wall and the anterior wall seemed more hypokinetic than at baseline. Patient was called back to the hospital for possible cardiac catheterization and blood pressure management. Patient otherwise denied any complaints of chest pain or shortness of air. No complaints of nausea vomiting or headache. Patient denies any smoking history or family history of coronary artery disease. Patient was previously on losartan 25 mg daily and was recently changed to Lopressor 50 mg twice daily. Laboratory data reviewed with LDL 119 and HDL 64 TSH 2.9 remaining lab data within normal limits. Recent chest x-ray showed no acute cardiopulmonary process 11/28/2019 Patient is currently lying in the bed comfortably. Blood pressure is better controlled. Status post cardiac catheterization with nonobstructive coronaries. Continue to monitor and titrate pressures medications. No complaints of chest pain or shortness of breath. No fever no chills. No headache or dizziness or lightheadedness. Current medications reviewed. Objective - Vital Signs Vital signs: Vital Signs Temp 98 F 11/28/19 15:10 Pulse 91 11/28/19 17:39 Resp 16 11/28/19 17:39 BP 129/80 11/28/19 17:39 Pulse Ox 100 11/28/19 17:39 Intake & Output 11/28/19 11/28/19 11/29/19 06:59 18:59 06:59 Intake Total 100 Balance 100 Weight 66.5 kg Intake: IV 100 Other: Voiding Method Toilet Toilet # Voids 1 2 # Bowel Movements 1 - Exam PHYSICAL EXAMINATION: Patient is lying in the bed comfortably, no acute distress, awake alert and oriented.. HEENT: Normocephalic. Neck is supple. Pupils reactive. Nostrils clear. Oral cavity is moist. Ears reveal no drainage. Neck reveals no JVD, carotid bruits, or thyromegaly. CHEST EXAMINATION: Trachea is central. Symmetrical expansion. Lung river clear to auscultation and percussion. CARDIAC: Normal S1, S2 with no gallops. No murmurs ABDOMEN: Soft. Bowel sounds normal. No organomegaly. No abdominal bruits. Extremities: reveal no edema. No clubbing or cyanosis Neurologically awake, alert, oriented x3 with well-coordinated movements. No focal deficits noted Skin: No rash or skin lesions. Psychiatric: Coperative. Nonsuicidal Musculoskeletal: No joint swelling or deformity. Normal range of motion. - Labs CBC & Chem 7: 11/27/19 11:53 11/27/19 11:53 Assessment and Plan Assessment: Abnormal stress echocardiogram with anterolateral ST depression and peak exercise global reduction in the overall LV contractility in the inferior wall and anterior wall. Status post cardiac catheterization. Uncontrolled hypertension DVT prophylaxis with early ambulation Plan: Patient will be continued on telemetry monitoring. Continue with metoprolol 50 mg twice daily and losartan 12.5 mg--50 mg daily was added. started on aspirin. Cardiology is following. Status post cardiac catheterization..
[2019-11-29] MEDS: ALPRAZolam 0.25 MG TAB PO PRN (12:37)
[2019-11-29 13:05] VITALS: BP 147/87; PULSE 79; TEMP 98.2
[2019-11-29] MEDS ORDERED: carvediloL 6.25 MG TAB PO SCH (17:30)
--- NOTE | 2019-12-13 11:00 | P.DS ---
Providers Date of admission: 11/27/19 11:24 Expected date of discharge: 11/29/19 Attending physician: Adam Pierre Consults: 11/27/19 14:02 Consult Physician Routine Consulting Provider: Rodrick Dias Consult Reason/Comments: hypertension, cp Do you want consulting provider notified?: Already Contacted Primary care physician: Babar Huff Hospital Course: Discharge Diagnsosis Abnormal stress echocardiogram with anterolateral ST depression and peak exercise global reduction in the overall LV contractility in the inferior wall and anterior wall. Status post cardiac catheterization. Uncontrolled hypertension DVT prophylaxis with early ambulation Hospital Course. Patient is a 74-year-old female with a known history of hypertension which has been uncontrolled recently. Patient was sent to ER by her primary care physician on 11/16/2019 due to abnormal EKG and uncontrolled blood pressure. Patient is currently metoprolol 50 mg twice daily at home. Patient was initially presents to the hospital today for stress test due to uncontrolled hypertension and tachycardia noted in her PCPs office. Patient had stress test today which showed inferolateral ST depression 1 mm and also peak exercise with global reduction in the overall LV contractility specifically in the inferior wall and the anterior wall seemed more hypokinetic than at baseline. Patient was called back to the hospital for possible cardiac catheterization and blood pressure management. Patient otherwise denied any complaints of chest pain or shortness of air. No complaints of nausea vomiting or headache. Patient denies any smoking history or family history of coronary artery disease. Patient was previously on losartan 25 mg daily and was recently changed to Lopressor 50 mg twice daily. Laboratory data reviewed with LDL 119 and HDL 64 TSH 2.9 remaining lab data within normal limits. Recent chest x-ray showed no acute cardiopulmonary process 11/28/2019 Patient is currently lying in the bed comfortably. Blood pressure is better controlled. Status post cardiac catheterization with nonobstructive coronaries. Continue to monitor and titrate pressures medications. No complaints of chest pain or shortness of breath. No fever no chills. No headache or dizziness or lightheadedness. 11/29/2019 Patient is currently resting in the bed comfortably. No complaints of chest pain. Blood pressures fairly controlled today. Patient underwent cardiac catheterization yesterday showed 80% lesion in the small diagonal branch, 90% lesion of the second diagonal branch has subtotal occlusion of the ostial circumflex artery. Patient is being continued on aspirin, statins and Coreg and losartan. No complaints of chest pain or shortness breath. No headache or dizziness or lightheadedness. No palpitations. Patient is cleared from cardiology standpoint and recommended to follow with Dr. Eng in 1 week. Discharge medication reconciliation was done. PHYSICAL EXAMINATION: Patient is lying in the bed comfortably, no acute distress, awake alert and oriented.. HEENT: Normocephalic. Neck is supple. Pupils reactive. Nostrils clear. Oral cavity is moist. Ears reveal no drainage. Neck reveals no JVD, carotid bruits, or thyromegaly. CHEST EXAMINATION: Trachea is central. Symmetrical expansion. Lung river clear to auscultation and percussion. CARDIAC: Normal S1, S2 with no gallops. No murmurs ABDOMEN: Soft. Bowel sounds normal. No organomegaly. No abdominal bruits. Extremities: reveal no edema. No clubbing or cyanosis Neurologically awake, alert, oriented x3 with well-coordinated movements. No focal deficits noted Skin: No rash or skin lesions. Psychiatric: Coperative. Nonsuicidal Musculoskeletal: No joint swelling or deformity. Normal range of motion. Vital Signs Temp 98 F 11/29/19 08:25 Pulse 75 11/29/19 08:25 Resp 16 11/29/19 09:00 BP 175/72 11/29/19 08:25 Pulse Ox 98 11/29/19 08:25 Intake & Output 11/28/19 11/29/19 11/29/19 18:59 06:59 18:59 Intake Total 100 720 100 Balance 100 720 100 Intake: IV 100 Oral 720 100 Other: Voiding Method Toilet Toilet Toilet # Voids 2 3 Patient Condition at Discharge: Stable Plan - Discharge Summary Discharge Rx Participant: No New Discharge Prescriptions: New carvediloL [Coreg] 6.25 mg PO BID-W/MEALS #180 tab Losartan [Cozaar] 50 mg PO Q24H #90 tab Atorvastatin [Lipitor] 40 mg PO DAILY #90 tab Continue Multivitamins, Thera [Multivitamin (formulary)] 1 tab PO DAILY Melatonin 10 mg PO HS PRN PRN Reason: Insomnia Aspirin EC [Ecotrin Low Dose] 81 mg PO DAILY Azelastine HCl [Optivar 0.05% Ophth Soln] 1 drop BOTH EYES BID Discontinued Metoprolol Tartrate [Lopressor] 50 mg PO BID #60 tab Discharge Medication List Aspirin EC [Ecotrin Low Dose] 81 mg PO DAILY 11/16/19 [History] Melatonin 10 mg PO HS PRN 11/16/19 [History] Multivitamins, Thera [Multivitamin (formulary)] 1 tab PO DAILY 11/16/19 [History] Azelastine HCl [Optivar 0.05% Ophth Soln] 1 drop BOTH EYES BID 11/27/19 [History] Atorvastatin [Lipitor] 40 mg PO DAILY #90 tab 11/29/19 [Rx] Losartan [Cozaar] 50 mg PO Q24H #90 tab 11/29/19 [Rx] carvediloL [Coreg] 6.25 mg PO BID-W/MEALS #180 tab 11/29/19 [Rx] Follow up Appointment(s)/Referral(s): Babar Huff MD [Primary Care Provider] - 12/01/19 1:10 pm Rodrick Dias MD [STAFF PHYSICIAN] - 12/05/19 8:30 am (Follow-up with Dr. Dias/Leia Castillo/Lissy Villanueva) Patient Instructions/Handouts: *[facility] - After Heart Catheterization - Sales And Marketing Agent Instructions, Heart Healthy Diet (DC), Hypertension (DC), After Radial Heart Catheterization (GEN) Discharge Disposition: HOME SELF-CARE
== END 2019-11-29 13:48 | disposition home or self-care (01) ==
LOC: RADNMMAIN 09:59 → 3NCARDOBS 11:24
PROVIDERS: ADMIT Hospitalist; ATTEND Hospitalist
DX: I25.10 Atherosclerotic heart disease of native coronary artery without angina pectoris (principal); I10 Essential (primary) hypertension; I77.1 Stricture of artery; E78.5 Hyperlipidemia, unspecified; R00.0 Tachycardia, unspecified; R94.39 Abnormal result of other cardiovascular function study; F41.9 Anxiety disorder, unspecified; Z79.82 Long term (current) use of aspirin; Z79.899 Other long term (current) drug therapy; Z88.1 Allergy status to other antibiotic agents
CPT/HCPCS: 93005; 93306; 93351; 93458; 80061; 80048; 84443; 83735; 85025; G0378 ×3; C1769 ×2; C1894; J2250; J0360; J2001; J3010; J1644; Q9967

== ENCOUNTER → 2020-07-03 | Outpatient (CLI) | payer MEDICARE, OTHER ==
--- NOTE | 2020-07-04 14:01 | MM ---
Reason for exam: screening (asymptomatic). Last mammogram was performed 1 year and 3 months ago. History: Patient is postmenopausal. Physical Findings: A clinical breast exam by your physician is recommended on an annual basis and results should be correlated with mammographic findings. MG 3D Screening Mammo W/Cad Bilateral CC and MLO view(s) were taken. Prior study comparison: April 18, 2019, mammogram, performed at [facility]. August 14, 2016, mammogram, performed at [facility]. The breast tissue is heterogeneously dense. This may lower the sensitivity of mammography. Benign appearing bilateral calcifications. No significant changes when compared with prior studies. ASSESSMENT: Benign, BI-RAD 2 RECOMMENDATION: Routine screening mammogram of both breasts in 1 year.
== END | disposition home or self-care (01) ==
LOC: RADMAMWWP 13:48
PROVIDERS: ATTEND Family Medicine
DX: Z12.31 Encounter for screening mammogram for malignant neoplasm of breast (principal); Z78.0 Asymptomatic menopausal state
CPT/HCPCS: 77063; 77067

== ENCOUNTER → 2022-04-02 | Outpatient (CLI) | payer MEDICARE ==
--- NOTE | 2022-04-02 13:14 | BD ---
EXAMINATION TYPE: Axial Bone Density DATE OF EXAM: 04/02/2022 COMPARISON: NONE CLINICAL HISTORY: 76 years year old Female. ICD-10 CODE: Z78.0 MENOPAUSE STATE Height: 5 FT 2 1/4 IN Weight: 125 FRAX RISK QUESTIONS: Alcohol (3 or more units per day): NO Family History (Parent hip fracture): NO Glucocorticoids (More than 3mos): NO (Ex: prednisone, prednisolone, methylprednisolone, dexamethasone, and hydrocortisone). History of Fracture in Adulthood: NO Secondary Osteoporosis: 1. Type 1 Diabetes: NO 2. Hyperthyroidism: NO 3. Menopause before 45: NO 4. Malnutrition: NO 5. Chronic liver disease: NO Rheumatoid Arthritis: NO Current Tobacco Use: NO RISK FACTORS HISTORY OF: Surgery to Spine/Hip(right/left)/Wrist (right/left): NO Family History of Osteoporosis: NO Active: YES Diet low in dairy products/other sources of calcium: NO Postmenopausal woman: YES Take estrogen and/or progesterone medications: NO Lost more than 2 inches in height since high school: NO Frequent falls: NO Poor Health: GOOD Hyperparathyroidism: NO Adrenal Insufficiency: NO MEDICATIONS: Additional Medications: BLOOD PRESSURE MED, CHOLESTEROL MEDS, BABY ASPIRIN, Additional History: EXAM MEASUREMENTS: Bone mineral densitometry was performed using the [employer] System. Bone mineral density as measured about the Lumbar spine is: ----- L1-L4(G/cm2): 1.019 T Score Values are as follows: ----- L1: -1.8 ----- L2: -2.1 ----- L3: -1.0 ----- L4: -0.8 ----- L1-L4: -1.3 PREV DONE [facility] Bone mineral density about the R hip (g/cm2): 0.682 Bone mineral density about the L hip (g/cm2): 0.643 T Score values are as follows: -----R Neck: -2.6 -----L Neck: -2.8 -----R Total: -2.3 -----L Total: -2.6 PREV DONE AT [facility] FRAX%s: The graph provided illustrates a 19.3 % chance for a major osteoporotic fx and a 7.3 % chance for the hips probability for fx in 10 years time. IMPRESSION: Osteoporosis (T Score less than -2.5). There is increased fracture risk and therapy is usually indicated based on age. Re-Screen 1-2 years. NOTE: T-SCORE=SD OF THE YOUNG ADULT MEAN.
--- NOTE | 2022-04-03 08:40 | MM ---
Reason for Exam: Screening (asymptomatic). Last mammogram was performed 1 year(s) and 9 month(s) ago. Patient History: Menarche at age 15. First Full-Term at age 19. Postmenopausal. Patient has history of breast feeding. Risk Values: Betty 5 year model risk: 1.2%. NCI Lifetime model risk: 2.5%. Prior Study Comparison: 08/14/2016 Screening Mammogram, [facility]. 04/18/2019 Screening Mammogram, [facility]. 07/03/2020 Bilateral Screening Mammogram, [facility]. Tissue Density: The breast tissue is heterogeneously dense. This may lower the sensitivity of mammography. Findings: Analyzed By CAD. The pattern is symmetrical and stable. No significant interval change is evident. Some benign vascular calcifications within the right breast. No suspicious groups of microcalcifications, spiculated or lobular masses, architectural distortion or other secondary signs of malignancy are mammographically apparent. Overall Assessment: Benign, BI-RAD 2 Management: Screening Mammogram of both breasts in 1 year. A negative mammogram report should not preclude additional follow up of suspicious palpable abnormalities. Patient should continue monthly self breast exam. A clinical breast exam by your physician is recommended on an annual basis and results should be correlated with mammographic findings. Electronically signed and approved by: Steven Sutton D.O. Radiologis
== END | disposition home or self-care (01) ==
LOC: RADMAMWWP 11:53
PROVIDERS: ATTEND Family Medicine
DX: Z12.31 Encounter for screening mammogram for malignant neoplasm of breast (principal); M81.0 Age-related osteoporosis without current pathological fracture; M85.89 Other specified disorders of bone density and structure, multiple sites; Z78.0 Asymptomatic menopausal state
CPT/HCPCS: 77063; 77067; 77080

== ENCOUNTER → 2023-07-21 | Outpatient (CLI) | payer MEDICARE ==
--- NOTE | 2023-07-22 18:49 | MM ---
Reason for Exam: Screening (asymptomatic). Last mammogram was performed 1 year(s) and 4 month(s) ago. Patient History: Menarche at age 15. First Full-Term at age 19. Postmenopausal. Patient has history of breast feeding. Risk Values: Betty 5 year model risk: 1.2%. NCI Lifetime model risk: 2.4%. Prior Study Comparison: 08/14/2016 Screening Mammogram, [facility]. 04/18/2019 Screening Mammogram, [facility]. 07/03/2020 Bilateral Screening Mammogram, [facility]. 04/02/2022 Bilateral MG 3D screening mammo w/cad, [facility]. Tissue Density: The breasts are heterogeneously dense, which may obscure small masses. Findings: Analyzed By CAD. There is no suspicious group of microcalcifications or new suspicious mass in either breast. Overall Assessment: Negative, BI-RAD 1 Management: Screening Mammogram of both breasts in 1 year. . Patient should continue monthly self-breast exams. A clinical breast exam by your physician is recommended on an annual basis. This exam should not preclude additional follow-up of suspicious palpable abnormalities. Note on Betty scores and lifetime risk: 1. A Betty score greater than 3% is considered moderate risk. If this is the case, consider specialist referral to assess eligibility for a risk reducing agent. 2. If overall lifetime risk for the development of breast cancer is 20% or higher, the patient may qualify for future screening with alternating mammogram and breast MRI. Electronically signed and approved by: Jose Harris M.D. Radiologist
== END | disposition home or self-care (01) ==
LOC: RADMAMWWP 12:45
PROVIDERS: ATTEND Internal Medicine Geriatric Medicine
DX: Z12.31 Encounter for screening mammogram for malignant neoplasm of breast (principal); Z78.0 Asymptomatic menopausal state
CPT/HCPCS: 77063; 77067